=== PATIENT | male | born 1980 | race Caucasian/White ===

== ENCOUNTER 2018-07-13 20:55 | Emergency (ER) | payer BC ==
[2018-07-13] MEDS ORDERED: Proparacaine 0.5% OPHTH.SOL* 15 ML BTL LEFT EYE ONE (22:24)
[2018-07-13] MEDS ORDERED: Fluorescein Sod TOPICAL 0.6* 0.6 MG TEST OPHTHALMIC ONE (22:25)
--- NOTE | 2018-07-13 23:26 | ED ---
Throat Pain/Nasal Congestion - HPI Summary HPI Summary: Patient complains of right eye pain after getting skin scrub compound in right eye during shower. Denies vision change, VALDES, ear pain, sore throat. Denies contacts or glasses. Medical history is none. - History of Current Complaint Chief Complaint: EDEyeProblem Time Seen by Provider: 07/13/18 21:29 Hx Obtained From: Patient Onset/Duration: Sudden Onset Severity: Moderate Associated Signs And Symptoms: Positive: Negative Cough: None - Allergies/Home Medications Allergies/Adverse Reactions: Allergies Allergy/AdvReac Type Severity Reaction Status Date / Time No Known Allergies Allergy Verified 07/13/18 21:01 PMH/Surg Hx/FS Hx/Imm Hx Endocrine/Hematology History: Denies: Hx Anticoagulant Therapy, Hx Diabetes, Hx Systemic Lupus Erythematosus Cardiovascular History: Denies: Hx Congestive Heart Failure, Hx Hypertension History: Denies: Hx Dialysis, Hx Renal Disease Musculoskeletal History: Denies: Hx Rheumatoid Arthritis - Cancer History Hx Chemotherapy: No Infectious Disease History: No Infectious Disease History: Denies: Traveled Outside the [place] in Last 30 Days - Social History Alcohol Use: None Substance Use Type: Reports: Excessive Caffeine, Marijuana Smoking Status (MU): Heavy Every Day Tobacco Smoker Review of Systems Constitutional: Negative Eyes: Negative Positive: Other - pain in the right eye ENT: Negative Cardiovascular: Negative Respiratory: Negative Gastrointestinal: Negative - ane Genitourinary: Negative Musculoskeletal: Negative Skin: Negative Neurological: Negative Psychological: Normal All Other Systems Reviewed And Are Negative: Yes Physical Exam Triage Information Reviewed: Yes Vital Signs On Initial Exam: Initial Vitals Temp Pulse Resp BP Pulse Ox 97.9 F 79 18 145/91 100 07/13/18 20:57 07/13/18 20:57 07/13/18 20:57 07/13/18 20:57 07/13/18 20:57 Vital Signs Reviewed: Yes Appearance: Positive: Well-Appearing Skin: Positive: Warm Head/Face: Positive: Normal Head/Face Inspection Eyes: Positive: EOMI, CATIE, Conjunctiva Inflammed - Right eye, Discharge Neck: Positive: Supple Respiratory/Lung Sounds: Positive: Clear to Auscultation Cardiovascular: Positive: Normal Abdomen Description: Positive: Nontender Musculoskeletal: Positive: Normal Neurological: Positive: Normal Psychiatric: Positive: Normal AVPU Assessment: Alert - [place] Coma Scale Best Eye Response: 4 - Spontaneous Best Motor Response: 6 - Obeys Commands Best Verbal Response: 5 - Oriented Coma Scale Total: 15 Diagnostics - Vital Signs Vital Signs Temp Pulse Resp BP Pulse Ox 07/13/18 20:57 97.9 F 79 18 145/91 100 - Laboratory Lab Statement: Any lab studies that have been ordered have been reviewed, and results considered in the medical decision making process. EENT Course/Dx - Course Course Of Treatment: Patient complains of right eye pain after getting skin scrub compound in right eye during shower. Denies vision change, VALDES, ear pain , sore throat. Denies contacts or glasses. Medical history is none. Ackerman lamp exam performed. Corneal abrasion noted to right eye, with abrasion across pupil 3 to 9:00.. No contacts, no glasses. No medical conditions. Gentamicin ophthalmology solution, 2 drops every 4 hours. Follow-up with ophthalmology - Diagnoses Provider Diagnoses: Corneal abrasion Discharge - Sign-Out/Discharge Documenting (check all that apply): Patient Departure - Discharge Plan Condition: Stable Disposition: HOME Patient Education Materials: Corneal Abrasion (ED) Referrals: Silvio La MD [Medical Doctor] - Loc [facility] [Medical Doctor] - Additional Instructions: 2 antibiotic drops in right eye every 4 hours. Follow-up with level vial marker Dr. La. Return to the ED for any new or worsening symptoms - Billing Disposition and Condition Condition: STABLE Disposition: Home
[2018-07-13] MEDS ORDERED: Gentamicin 0.3% OPHTH.SOLN* 5 ML BTL RIGHT EYE SCH (23:30)
[2018-07-13 23:46] VITALS: BP 140/84
== END 2018-07-13 23:46 | disposition home or self-care (01) ==
LOC: ED 20:55
DX: S05.01XA Injury of conjunctiva and corneal abrasion without foreign body, right eye, initial encounter (principal); X58.XXXA Exposure to other specified factors, initial encounter; Y93.E1 Activity, personal bathing and showering; Y92.9 Unspecified place or not applicable; F17.200 Nicotine dependence, unspecified, uncomplicated
CPT/HCPCS: 99282; A9270-GY